=== PATIENT | male | born 1995 | race Hispanic/Latino ===

== ENCOUNTER 2018-08-02 22:15 | Emergency (ER) | payer OTHER ==
[2018-08-02 22:20] VITALS: RESP 18
[2018-08-02] MEDS ORDERED: Sodium Chloride 0.9% 1,000 ML IV STA (22:22)
[2018-08-02] MEDS ORDERED: DiphenhydrAMINE 50 mg/ml Inj IV STA (22:22)
[2018-08-02] MEDS ORDERED: Phenylephrine 0.5% Nasal Spray NAS STA (22:30)
[2018-08-02] MEDS ORDERED: DiphenhydrAMINE 50 mg/ml Inj ONE (22:32)
--- NOTE | 2018-08-02 22:32 | ED PDOC ---
HPI: Allergic Reaction Time Seen by Provider: 08/02/18 22:24 Chief Complaint (Nursing): Allergic Reaction Chief Complaint (Provider): Allergic reaction History Per: Patient History/Exam Limitations: no limitations Onset/Duration Of Symptoms: Hrs (1) Current Symptoms Are (Timing): Still Present Context: Food Possible Cause: Food Home/EMS Treatment: Benadryl Additional History Per: Patient Additional Complaint(s): 23yo male with history of peanut allergy, comes to ER reporting an acute sense of nausea and vomiting after eating something containing peanuts. Patient also reports nasal and sinus congestion and states he has throat discomfort but denies louie throat tightness. Patient states he took Benadryl but then vomited it up. Otherwise, no shortness of breath, lip or tongue swelling, redness, or itching. No additional complaints. Past Medical History Reviewed: Historical Data, Nursing Documentation, Vital Signs Vital Signs: Last Vital Signs Temp 97.4 F L 08/02/18 22:17 Pulse 68 08/02/18 22:17 Resp 18 08/02/18 22:17 BP 164/95 H 08/02/18 22:17 Pulse Ox 99 08/02/18 22:17 - Medical History PMH: No Chronic Diseases - Surgical History Surgical History: Appendectomy - Family History Family History: States: No Known Family Hx - Home Medications Home Medications: Ambulatory Orders Medication Instructions Recorded Cetirizine HCl [Zyrtec] 10 mg PO QAM #10 capsule 08/02/18 Famotidine [Pepcid] 20 mg PO Q12 #14 tab 08/02/18 Methylprednisolone [Medrol Dosepak] 4 mg PO ASDIR #1 pkg 08/02/18 - Allergies Allergies/Adverse Reactions: Allergies Allergy/AdvReac Type Severity Reaction Status Date / Time peanut Allergy ANAPHYLAXIS Verified 08/02/18 22:17 Review of Systems ROS Statement: Except As Marked, All Systems Reviewed And Found Negative ENT: Negative for: Mouth Swelling, Throat Swelling Gastrointestinal: Positive for: Nausea, Vomiting Skin: Negative for: Rash Physical Exam - Reviewed Nursing Documentation Reviewed: Yes Vital Signs Reviewed: Yes - Physical Exam Appears: Positive for: Non-toxic Head Exam: Positive for: ATRAUMATIC, NORMAL INSPECTION, NORMOCEPHALIC Skin: Positive for: Normal Color Eye Exam: Positive for: Normal appearance, EOMI, PERRL ENT: Positive for: Nasal Congestion. Negative for: Other (throat swelling; angioedema) Neck: Positive for: Normal, Supple Cardiovascular/Chest: Positive for: Regular Rate, Rhythm Respiratory: Positive for: Normal Breath Sounds. Negative for: Wheezing Gastrointestinal/Abdominal: Positive for: Normal Exam, Soft Back: Positive for: Normal Inspection Extremity: Positive for: Normal ROM. Negative for: Pedal Edema Neurologic/Psych: Positive for: Alert, Oriented. Negative for: Motor/Sensory Deficits - ECG O2 Sat by Pulse Oximetry: 99 (RA) Pulse Ox Interpretation: Normal - Progress ED Course And Treament: Impression: 23yo male with allergic reaction Plan: -- Benadryl 50mg IV -- Pepcid 40mg IV -- Solumedrol 125mg IVP -- Vamshi-synephrine 2 sprays -- IV Fluids 0240 Patient reports improvement of symptoms, requires no further treatment in the ER. Patient is stable for discharge. Scribe Attestation: Documented by Kay Dempsey, acting as a scribe for Stuart Zimmerman MD Provider Scribe Attestation: All medical record entries made by the Scribe were at my direction and personally dictated by me. I have reviewed the chart and agree that the record accurately reflects my personal performance of the history, physical exam, medical decision making, and the department course for this patient. I have also personally directed, reviewed, and agree with the discharge instructions and disposition. - Critical Care Total Time (In Min): 30 Documented Critical Care: Time excludes all time spent performint seperately billable procedures Disposition - Clinical Impression Clinical Impression: Allergic reaction - Patient ED Disposition Is Patient to be Admitted: No - Disposition Disposition: Routine/Home Disposition Time: 02:40 Condition: STABLE Prescriptions: Cetirizine HCl [Zyrtec] 10 mg PO QAM #10 capsule Famotidine [Pepcid] 20 mg PO Q12 #14 tab Methylprednisolone [Medrol Dosepak] 4 mg PO ASDIR #1 pkg Instructions: Food Allergy Forms: [employer] ([place])
[2018-08-02] MEDS ORDERED: Phenylephrine 0.5% Nasal Spray NAS ONE (23:03)
[2018-08-03 01:44] VITALS: TEMP 98.2
[2018-08-03 02:14] VITALS: BP 131/75; PULSE 66
[2018-08-03 02:44] VITALS: O2SAT 99
== END 2018-08-03 02:28 | disposition home or self-care (01) ==
LOC: H.ER 22:15
DX: T78.40XA Allergy, unspecified, initial encounter (principal)
CPT/HCPCS: 96361; 96374; 96375; 99285; J1200; J2930; J7030